=== PATIENT | female | born 1975 | race Two or more races ===

== ENCOUNTER 2016-11-11 07:15 | Emergency (ER) | payer BC, OTHER ==
[2016-11-11] MEDS ORDERED: IOPAMIDOL 370 (76%) IV.SOLN 150 ML IV ONE (07:16)
[2016-11-11 07:51] LABS: URINE BILIRUBIN NEGATIVE (NEGATIVE); URINE BLOOD NEGATIVE (NEGATIVE); URINE GLUCOSE (UA) NEGATIVE (NEGATIVE); URINE LEUKOCYTE ESTERASE NEGATIVE (NEGATIVE); URINE NITRITE NEGATIVE (NEGATIVE); URINE PROTEIN NEGATIVE (NEGATIVE); URINE UROBILINOGEN NORMAL (0-1 mg/dl)
[2016-11-11 08:02] LABS: SPECIFIC GRAVITY 1.015 (1.001-1.030)
[2016-11-11 08:19] LABS: URINE APPEARANCE CLEAR; URINE COLOR YELLOW
[2016-11-11 09:01] LABS: ABSOLUTE NEUTROPHIL COUNT 4.5 K/mm3 (1.8-7.7); BASO # 0.1 K/mm3 (0.0-0.2); BASO % 0.8 % (0.2-1.0); EOS # 0.1 (0.0-0.5); EOS % 1.1 % (0.9-2.9); HEMATOCRIT 36.1 % (37.0-47.0); HEMOGLOBIN 11.3 gm/l (12.0-16.0); IMM NEUT% 0.1 % (0-1); LYMPH # 2.2 (1.0-4.8); LYMPH % 30.5 % (15-45); MEAN CELL VOLUME 83.2 fl (81.0-99.0); MEAN CORPUSCULAR HGB CONC 31.3 g/dl (33.0-37.0); MEAN PLATELET VOLUME 10.3 fl (7.4-10.4); MONO # 0.4 (0.0-0.8); MONO % 5.6 % (4-12); NEUT % 61.9 % (43-75); PLATELET COUNT 369 K/mm3 (130-400); RED CELL DISTRIBUTION WIDTH 13.5 % (11.5-14.5)
[2016-11-11 09:25] LABS: ALB/GLOB RATIO 1.2 (>1.0); ALBUMIN 4.1 gm/dL (3.5-5.7); CALCIUM 9.3 mg/dL (8.6-10.3)
--- NOTE | 2016-11-11 11:07 | CT ---
ABD/PELVIS W/ CON COMPARISON: Abdomen ultrasound, 12/02/2004. Gallbladder ultrasound, 10/25/2011 HISTORY: 41-year-old female with left flank pain. Technique: No oral contrast. Intravenous injection 125 mL Isovue 370. Using a [employer] [address] scanner, images were obtained from the diaphragm to the floor the pelvis. An automated dose reduction technique was used to minimize patient radiation dose. Dose information: CTDIvol (mGy): 20.70 DLP(mGycm): 1078.70 FINDINGS: Lung bases: Normal. Inferior mediastinum and heart: Normal. Liver: Normal. Gallbladder: Cholecystectomy. Bile ducts: Normal. Pancreas: Normal. Spleen: Normal. Adrenal glands: Normal. Kidneys: 6 mm cyst, interpolar posterior right kidney. Normal left kidney. No stones or hydronephrosis. Ureters: Normal Urinary bladder: Normal. Uterus and adnexa: Normal. Blood vessels: Normal Lymph nodes: Normal Stomach: Normal Duodenum: Normal Small intestine: Normal Appendix: Normal Colon: Normal Abdominal wall and supporting musculature: Normal Bones: No acute finding. L5-S1 moderate spondylosis. IMPRESSION: 1. Normal left flank. No evidence of pyelonephritis or hydronephrosis. 2. Incidental findings include cholecystectomy, 6 mm cyst in the right kidney, and L5-S1 moderate spondylosis. The report was sent to the emergency department electronic medical record system 11/11/2016 at 11:09
== END 2016-11-11 11:56 | disposition home or self-care (01) ==
LOC: ED 07:15
DX: R10.9 Unspecified abdominal pain (principal); E11.9 Type 2 diabetes mellitus without complications; Z79.84 Long term (current) use of oral hypoglycemic drugs
CPT/HCPCS: 83690; 84703; 85025; 80053; 81003; 74177; 99284 ×2; Q9967